=== PATIENT | male | born 1995 | race Caucasian/White ===

== ENCOUNTER 2021-03-19 21:01 | Emergency (ER) | payer BC, SELFPAY ==
[2021-03-19 22:06] VITALS: BP 112/76; PULSE 90; RESP 18; TEMP 36.1; O2SAT 97
[2021-03-19] MEDS: TETANUS,DIPHTHERIA,AC PERTUSSIS ADULT (0.5 ML) BOOSTRIX IM (23:04)
--- NOTE | 2021-03-19 23:47 | ED.WOUNDLAC ---
HPI - Wound/Laceration General Chief Complaint: Wound/Laceration Stated Complaint: laceration above eye Time Seen by Provider: 03/19/21 22:37 History of Present Illness HPI narrative: Patient is a 26-year-old male who presents ER with right eyebrow laceration. Struck head with another person while playing flag football. No LOC. Has some swelling over his right cheek with tenderness. No bloody nose or difficulty breathing. Related Data Home Medications Medication Instructions Recorded Confirmed venlafaxine mg PO 03/19/21 Allergies Allergy/AdvReac Type Severity Reaction Status Date / Time No Known Allergies Allergy Mild Verified 03/19/21 22:15 Review of Systems ENT: Denies dizziness and Denies nasal congestion Comments: Right cheek swelling Integumentary/Breasts: Comments: Right eyebrow laceration Neurologic: Denies syncope, Denies headache(s), Denies focal weakness and Denies numbness PMFSH Past Medical History Medical History (Updated 03/19/21 @ 23:51 by David Valdez MD) Healthy adult male Surgical History Surgical History (Updated 03/19/21 @ 23:48 by David Valdez MD) No history of previous surgery Social History Social History Smoking status: Never smoker Alcohol intake: never Exam Narrative: GENERAL: Well-appearing, well-nourished, and in no acute distress. HEAD: Normocephalic, atraumatic. EYES: PERRL and EOMI. 2 cm lateral right eyebrow laceration superficial. ENT: Right cheek swelling, minor. Normal nose. CHEST: Clear to auscultation. No respiratory distress. HEART: Regular rate and rhythm. Normal peripheral pulses. EXTREMITIES: Normal range of motion. No edema. SKIN: Warm, dry, no rash. NEURO: Alert and oriented x3. PSYCH: Normal mood and affect. Course Course Emergency Course: Tetanus updated. Discharge home. Vital Signs Vital signs: Vital Signs Temperature 97.0 F L 03/19/21 22:06 Pulse Rate 90 03/19/21 22:06 Respiratory Rate 18 03/19/21 22:06 Blood Pressure 112/76 03/19/21 22:06 Pulse Oximetry 97 03/19/21 22:06 Temperature 97.0 F L 03/19/21 22:06 Pulse Rate 90 03/19/21 22:06 Respiratory Rate 18 03/19/21 22:06 Blood Pressure 112/76 03/19/21 22:06 Pulse Oximetry 97 03/19/21 22:06 Procedures Laceration Laceration 1: Date: 03/19/21 Time: 23:49 Site: other (eyebrow) Side (If applicable): right Size (cm): 2 Description: linear Depth: simple, single layer Local Anesthetic: lidocaine 1% Amount of anesthesia used (mL): 2 Pre-repair: irrigated ====== Skin Level ====== Skin layer closed with: prolene Size (cm): 6-0 Number of sutures: 4 Technique: simple, interrupted ====== Subcutaneous Layer ====== ====== Muscle Layer ====== ====== Tendon Layer ====== Discharge Plan Discharge Clinical Impression: Laceration Patient Disposition: Home, Self-Care Condition: Stable Instructions: Care For Your Stitches (ED), Laceration (ED) Additional Instructions: Return the ER if you have fever 100.4 ?F, you cannot keep down food or water, you have chest pain or shortness of breath, you have additional concerns. Additionally return if your wound becomes infected. Remove your sutures in 3 to 4 days. Prescriptions: No Action venlafaxine 150 mg capsule,extended release 24hr PO RF: 0 Follow-up/Referrals: Margaret,Sarah Beth Lopez MD [Primary Care Provider] - 3 Days
== END 2021-03-20 00:05 | disposition home or self-care (01) ==
PROVIDERS: Emergency Provider Emergency Medicine; PCP Family Medicine
DX: S01.111A Laceration without foreign body of right eyelid and periocular area, initial encounter (principal); Z23 Encounter for immunization; W51.XXXA Accidental striking against or bumped into by another person, initial encounter; Y93.62 Activity, american flag or touch football
CPT/HCPCS: 12011; 90471; 90715; 99282

== ENCOUNTER 2021-04-25 07:42 | Outpatient (CLI) | payer BC, SELFPAY ==
--- NOTE | ~2021-04-25 | MR_ITS ---
EXAMINATION: MR hip LT wo con DATE: 04/25/2021 09:27 INDICATION: Left hip pain. TECHNIQUE: Magnetic resonance imaging (MRI) of the left hip was performed without intravenous contras t. Sequences included axial and coronal PD-weighted FS FSE and axial T1-weighted FSE of the pelvis. S equences of the hip included 2D FIESTA, T1-weighted fast GRE, and axial, coronal, and sagittal PD-juanita ghted FS FSE. COMPARISON: None FINDINGS: Bones/cartilage: Bone alignment is normal. No fracture. Bone marrow signal intensity is normal. There is shallow parti al-thickness cartilage loss in left hip joint superiorly. Labrum: There is a tear of left acetabular labrum posteriorly. Fluid: There is no hip joint effusion. Soft tissues: There is mild tendinopathy of the hamstring origins bilaterally. There is a high grade partial tear o f left semimembranosus at the myotendinous junction with associated hematoma. The tear is only includ ed on the coronal images. The gluteus minimus and medius tendons are normal. The iliopsoas tendons ar e normal. IMPRESSION: 1. Grade 2 strain of left semimembranosus. 2. Mild left hip joint chondrosis. Left acetabular labral tear. Reviewed, dictated and finalized at location A. [employer]
== END 2021-04-25 07:43 | disposition home or self-care (01) ==
LOC: ANHIMG 07:49
PROVIDERS: PCP Family Medicine; Visit Provider Orthopaedic Surgery
DX: M25.552 Pain in left hip (principal); S76.812A Strain of other specified muscles, fascia and tendons at thigh level, left thigh, initial encounter; S73.192A Other sprain of left hip, initial encounter; M25.852 Other specified joint disorders, left hip
CPT/HCPCS: 73721